=== PATIENT | male | born 1985 | race Caucasian/White ===

== ENCOUNTER 2016-08-06 16:38 | Emergency (ER) | payer MEDICAID, OTHER ==
[~2016-08-06 16:38] MED LIST: CELE40TA OR; DEPA250T2 OR; DEPA500T2 OR; EFFE37.527 OR; HYDR50TA8 OR; No Historical Meds; QUET30XR OR; TRAZ150T OR
--- NOTE | 2016-08-06 18:51 | EDDOCDS ---
Physician Documentation [facility] Name: Emil Gardiner Age: 31 yrs Sex: Male : 1985 Arrival Date: 08/06/2016 Time: 16:38 Bed Triage 2 Private MD: NO PRIMARY PHYSICIAN, . Disposition: 08/06/16 18:40 Discharged to Home/Self Care. Impression: Cellulitis of buttock. - Condition is Stable. - Discharge Instructions: Cellulitis. - Prescriptions for Doxycycline Hyclate 100 mg Oral Tablet - take 1 tablet by ORAL route every 12 hours; 20 tablet. - Medication Reconciliation, Local Pharmacy Hours form. - Follow up: [facility]; When: 2 - 3 days; Reason: Recheck today's complaints, Continuance of care. Follow up: Emergency Department; When: 2 - 3 days; Reason: Wound/Symptom Recheck, Recheck today's complaints, Continuance of care. - Problem is new. - Symptoms have improved. - Notes: STOP AZITHROMYCIN, START DOXYCYLINE AND CONTINUE FLAGYL. FOLLOW UP WITH YOUR DOCTOR OR THE GRADUATE MEDICAL PROGRAM IN 2-3 DAYS FOR RECHECK Historical: - Allergies: no known allergies; - Home Meds: 1. azithromycin 250 mg Oral tab 1 tab once daily (Last dose: 08/05/2016) 2. Flagyl 500 mg Oral tab 1 tab every 8 hours (Last dose: 08/06/2016 14:00) - PMHx: none; - PSHx: cleft lip and palate; - Social history: Smoking status: Patient uses tobacco products, current every day smoker. No barriers to communication noted, The patient speaks fluent [place], Speaks appropriately for age. - Family history: Not pertinent. - : The pt / caregiver states he / she is not on anticoagulants. Home medication list is obtained from the patient. - Exposure Risk Screening:: None identified. Vital Signs: 08/06 16:40 BP 142 / 84; Pulse 73; Resp 18 S; Temp 96.8(O); Pulse Ox 99% on R/A; Weight 108.86 kg / gr2 240 lbs (R); Height 6 ft. 3 in. (190.50 cm) (R); Pain 2/10; 18:42 BP 139 / 96; Pulse 68; Resp 18; Temp 98.2(TE); Pulse Ox 97% on R/A; Pain 0/10; mdr 16:40 Body Mass Index 30.00 (108.86 kg, 190.50 cm) gr2 MDM: 18:36 Financial registration complete. ks16 18:37 [facility] Payment Agreement was scanned into [employer] and attached to record. [email or web address] Signatures: Shahnaz Pearce,RN RN dsf Keith Irizarry, RPA-C RPA-Cck7 Sangita Turner, Reg Reg ks16 The chart was reviewed and I authenticate all verbal orders and agree with the evaluation and treatment provided.Attachments: 18:37 [facility] Payment Agreement ks16 MTDD
--- NOTE | 2016-08-06 18:51 | EDDOCDS ---
Nurse's Notes [facility] Name: Emil Gardiner Age: 31 yrs Sex: Male : 1985 Arrival Date: 08/06/2016 Time: 16:38 Bed Triage 2 Private MD: NO PRIMARY PHYSICIAN, . Diagnosis: Cellulitis of buttock Presentation: 08/06 16:43 Presenting complaint: Patient states: boil to left cheek that he noticed 2 days ago. dsf Adult Sepsis Screening: The patient does not have new or worsening altered mentation. Patient's respiratory rate is less than 22. Systolic blood pressure is greater than 100. Patient has a qSOFA score of 0- Negative Sepsis Screen. Suicide/Homicide risk assessment- the patient denies having any suicidal and/or homicidal ideations and does not present with any other emotional, behavioral or mental health complaints. Status: Patient is not a sales and service advisor or dependent. Transition of care: patient was not received from another setting of care. 16:43 Acuity: CHRISTIANO Level 4 dsf 16:43 Method Of Arrival: Walkin/Carried/Asstd dsf Triage Assessment: 16:45 General: Appears in no apparent distress, Behavior is appropriate for age, cooperative. dsf Pain: Denies pain. HIV screening NA for this visit Offered previously. Derm: Reports bump to left butt cheek. Historical: - Allergies: no known allergies; - Home Meds: 1. azithromycin 250 mg Oral tab 1 tab once daily (Last dose: 08/05/2016) 2. Flagyl 500 mg Oral tab 1 tab every 8 hours (Last dose: 08/06/2016 14:00) - PMHx: none; - PSHx: cleft lip and palate; - Social history: Smoking status: Patient uses tobacco products, current every day smoker. No barriers to communication noted, The patient speaks fluent Indonesian, Speaks appropriately for age. - Family history: Not pertinent. - : The pt / caregiver states he / she is not on anticoagulants. Home medication list is obtained from the patient. - Exposure Risk Screening:: None identified. Screenin:46 Screening information is obtained from the patient. Fall risk: No risks identified. dsf Assistance ADL's: requires no assistance with activities of daily living. Abuse/DV Screen: The patient / caregiver reports he/she is: not in a situation that causes fear, pain or injury. Nutritional screening: No deficits noted. Advance Directives: Currently, there is no health care proxy. home support is adequate. Assessment: 18:46 General: Appears in no apparent distress, Behavior is appropriate for age, cooperative. dsf Neurological: Level of Consciousness is awake, alert. Cardiovascular: No deficits noted. Respiratory: No deficits noted. Derm: Skin is pink, warm & dry. Vital Signs: 16:40 BP 142 / 84; Pulse 73; Resp 18 S; Temp 96.8(O); Pulse Ox 99% on R/A; Weight 108.86 kg gr2 (R); Height 6 ft. 3 in. (190.50 cm) (R); Pain 2/10; 18:42 BP 139 / 96; Pulse 68; Resp 18; Temp 98.2(TE); Pulse Ox 97% on R/A; Pain 0/10; mdr 16:40 Body Mass Index 30.00 (108.86 kg, 190.50 cm) gr2 Vitals: 16:40 Log In Time: August 06, 2016 at 16:40. gr2 ED Course: 16:39 Patient visited by Carol Jose. gr2 16:39 NO PRIMARY PHYSICIAN, . is Private Physician. gr2 16:39 Patient moved to Waiting gr2 16:41 Patient visited by Carol Jose. gr2 16:41 Patient moved to Pre RCE gr2 16:44 Triage Initiated dsf 18:10 Patient moved to Triage 2 dsf 18:17 [facility] ck7 18:17 Geovani Navarrete MD is Attending Physician. ck7 18:17 Patient visited by Keith Irizarry RPA-C. ck7 18:37 [facility] Payment Agreement was scanned into [employer] and attached to record. ks16 18:39 [facility] is Referral Physician. ck7 18:46 Patient visited by Vitaly Bolden PCA. mdr 18:46 The patient / caregiver is instructed regarding the plan of care and ED course. dsf 18:46 No IV's were initiated during this patient's visit. No procedures done that require dsf assistance. Order Results: There are currently no results for this order. Outcome: 18:40 Discharge ordered by Provider. ck7 18:46 Discharge Assessment: Patient awake, alert and oriented x 3. No cognitive and/or dsf functional deficits noted. Patient verbalized understanding of disposition instructions. patient administered narcotics - no. The following High Risk Discharge criteria are identified: None. Discharged to home ambulatory. Condition: stable. Discharge instructions given to patient, Instructed on discharge instructions, follow up and referral plans. medication usage, Demonstrated understanding of instructions, medications, Pt was receptive of discharge instructions/ teaching. Prescriptions given X 1. No special radiology studies were completed. Property :Personal belongings accompany Pt. 18:50 Patient left the ED. dsf Signatures: Shahnaz Pearce,RN RN dsf Keith Irizarry, RPA-C RPA-Cck7 Carol Jose gr2 Vitaly Bolden, FERNIE CONSTRUCTION TRADES CONTRACTOR mdr Sangita Turner, Reg Reg ks16 MTDD
--- NOTE | 2016-08-08 19:50 | EDDOCDS ---
Physician Documentation [facility] Name: Emil Gardiner Age: 31 yrs Sex: Male : 1985 Arrival Date: 08/06/2016 Time: 16:38 Bed Triage 2 Private MD: NO PRIMARY PHYSICIAN, . Disposition: 08/06/16 18:40 Discharged to Home/Self Care. Impression: Cellulitis of buttock. - Condition is Stable. - Discharge Instructions: Cellulitis. - Prescriptions for Doxycycline Hyclate 100 mg Oral Tablet - take 1 tablet by ORAL route every 12 hours; 20 tablet. - Medication Reconciliation, Local Pharmacy Hours form. - Follow up: [facility]; When: 2 - 3 days; Reason: Recheck today's complaints, Continuance of care. Follow up: Emergency Department; When: 2 - 3 days; Reason: Wound/Symptom Recheck, Recheck today's complaints, Continuance of care. - Problem is new. - Symptoms have improved. - Notes: STOP AZITHROMYCIN, START DOXYCYLINE AND CONTINUE FLAGYL. FOLLOW UP WITH YOUR DOCTOR OR THE GRADUATE MEDICAL PROGRAM IN 2-3 DAYS FOR RECHECK Historical: - Allergies: no known allergies; - Home Meds: 1. azithromycin 250 mg Oral tab 1 tab once daily (Last dose: 08/05/2016) 2. Flagyl 500 mg Oral tab 1 tab every 8 hours (Last dose: 08/06/2016 14:00) - PMHx: none; - PSHx: cleft lip and palate; - Social history: Smoking status: Patient uses tobacco products, current every day smoker. No barriers to communication noted, The patient speaks fluent [place] Citizen, Speaks appropriately for age. - Family history: Not pertinent. - : The pt / caregiver states he / she is not on anticoagulants. Home medication list is obtained from the patient. - Exposure Risk Screening:: None identified. Vital Signs: 08/06 16:40 BP 142 / 84; Pulse 73; Resp 18 S; Temp 96.8(O); Pulse Ox 99% on R/A; Weight 108.86 kg / gr2 240 lbs (R); Height 6 ft. 3 in. (190.50 cm) (R); Pain 2/10; 18:42 BP 139 / 96; Pulse 68; Resp 18; Temp 98.2(TE); Pulse Ox 97% on R/A; Pain 0/10; mdr 16:40 Body Mass Index 30.00 (108.86 kg, 190.50 cm) gr2 MDM: 18:36 Financial registration complete. ri 18:37 [facility] Payment Agreement was scanned into [employer] and attached to record. 08/07 12:03 T-Sheet-- Draft Copy was scanned into [employer] and attached to record. gb Signatures: Suly Ramírez, Reg Reg gb Shahnaz Pearce RN RN dsf Keith Irizarry, RPA-C RPA-Cck7 Sangita Turner, Reg Reg ks16 The chart was reviewed and I authenticate all verbal orders and agree with the evaluation and treatment provided.Attachments: 08/06 18:37 [facility] Payment Agreement 08/07 12:03 T-Sheet-- Draft Copy gb Chart Complete MTDD
--- NOTE | 2016-08-08 19:50 | EDDOCDS ---
Nurse's Notes [facility] Name: Emil Gardiner Age: 31 yrs Sex: Male : 1985 Arrival Date: 08/06/2016 Time: 16:38 Bed Triage 2 Private MD: NO PRIMARY PHYSICIAN, . Diagnosis: Cellulitis of buttock Presentation: 08/06 16:43 Presenting complaint: Patient states: boil to left cheek that he noticed 2 days ago. dsf Adult Sepsis Screening: The patient does not have new or worsening altered mentation. Patient's respiratory rate is less than 22. Systolic blood pressure is greater than 100. Patient has a qSOFA score of 0- Negative Sepsis Screen. Suicide/Homicide risk assessment- the patient denies having any suicidal and/or homicidal ideations and does not present with any other emotional, behavioral or mental health complaints. Status: Patient is not a fuel injection servicer or dependent. Transition of care: patient was not received from another setting of care. 16:43 Acuity: CHRISTIANO Level 4 dsf 16:43 Method Of Arrival: Walkin/Carried/Asstd dsf Triage Assessment: 16:45 General: Appears in no apparent distress, Behavior is appropriate for age, cooperative. dsf Pain: Denies pain. HIV screening NA for this visit Offered previously. Derm: Reports bump to left butt cheek. Historical: - Allergies: no known allergies; - Home Meds: 1. azithromycin 250 mg Oral tab 1 tab once daily (Last dose: 08/05/2016) 2. Flagyl 500 mg Oral tab 1 tab every 8 hours (Last dose: 08/06/2016 14:00) - PMHx: none; - PSHx: cleft lip and palate; - Social history: Smoking status: Patient uses tobacco products, current every day smoker. No barriers to communication noted, The patient speaks fluent [place], Speaks appropriately for age. - Family history: Not pertinent. - : The pt / caregiver states he / she is not on anticoagulants. Home medication list is obtained from the patient. - Exposure Risk Screening:: None identified. Screenin:46 Screening information is obtained from the patient. Fall risk: No risks identified. dsf Assistance ADL's: requires no assistance with activities of daily living. Abuse/DV Screen: The patient / caregiver reports he/she is: not in a situation that causes fear, pain or injury. Nutritional screening: No deficits noted. Advance Directives: Currently, there is no health care proxy. home support is adequate. Assessment: 18:46 General: Appears in no apparent distress, Behavior is appropriate for age, cooperative. dsf Neurological: Level of Consciousness is awake, alert. Cardiovascular: No deficits noted. Respiratory: No deficits noted. Derm: Skin is pink, warm & dry. Vital Signs: 16:40 BP 142 / 84; Pulse 73; Resp 18 S; Temp 96.8(O); Pulse Ox 99% on R/A; Weight 108.86 kg gr2 (R); Height 6 ft. 3 in. (190.50 cm) (R); Pain 2/10; 18:42 BP 139 / 96; Pulse 68; Resp 18; Temp 98.2(TE); Pulse Ox 97% on R/A; Pain 0/10; mdr 16:40 Body Mass Index 30.00 (108.86 kg, 190.50 cm) gr2 Vitals: 16:40 Log In Time: August 06, 2016 at 16:40. gr2 ED Course: 16:39 Patient visited by Carol Jose. gr2 16:39 NO PRIMARY PHYSICIAN, . is Private Physician. gr2 16:39 Patient moved to Waiting gr2 16:41 Patient visited by Carol Jose. gr2 16:41 Patient moved to Pre RCE gr2 16:44 Triage Initiated dsf 18:10 Patient moved to Triage 2 dsf 18:17 Keith Iriz[facility]C [facility] ck7 18:17 Geovani Navarrete MD is Attending Physician. ck7 18:17 Patient visited by Keith Irizarry RPA-C. ck7 18:37 [facility] Payment Agreement was scanned into [employer] and attached to record. ks16 18:39 [facility] is Referral Physician. ck7 18:46 Patient visited by Vitaly Boldne PCA. mdr 18:46 The patient / caregiver is instructed regarding the plan of care and ED course. dsf 18:46 No IV's were initiated during this patient's visit. No procedures done that require dsf assistance. 08/07 12:03 T-Sheet-- Draft Copy was scanned into [employer] and attached to record. gb Order Results: There are currently no results for this order. Outcome: 08/06 18:40 Discharge ordered by Provider. ck7 18:46 Discharge Assessment: Patient awake, alert and oriented x 3. No cognitive and/or dsf functional deficits noted. Patient verbalized understanding of disposition instructions. patient administered narcotics - no. The following High Risk Discharge criteria are identified: None. Discharged to home ambulatory. Condition: stable. Discharge instructions given to patient, Instructed on discharge instructions, follow up and referral plans. medication usage, Demonstrated understanding of instructions, medications, Pt was receptive of discharge instructions/ teaching. Prescriptions given X 1. No special radiology studies were completed. Property :Personal belongings accompany Pt. 18:50 Patient left the ED. dsf Signatures: Suly Ramírez, Reg Reg gb Shahnaz Pearce,RN RN dsf Keith Irizarry, RPA-C RPA-Cck7 Carol Jose gr2 Vitaly Bolden, SPORTS BOOKMAKER SPORTS BOOKMAKER mdr Sangita Turner, Reg Reg ks16 Chart Complete MTDD
--- NOTE | 2016-08-08 19:50 | EDDOCDS ---
Physician Documentation [facility] Name: Emil Gardiner Age: 31 yrs Sex: Male : 1985 Arrival Date: 08/06/2016 Time: 16:38 Bed Triage 2 Private MD: NO PRIMARY PHYSICIAN, . Disposition: 08/06/16 18:40 Discharged to Home/Self Care. Impression: Cellulitis of buttock. - Condition is Stable. - Discharge Instructions: Cellulitis. - Prescriptions for Doxycycline Hyclate 100 mg Oral Tablet - take 1 tablet by ORAL route every 12 hours; 20 tablet. - Medication Reconciliation, Local Pharmacy Hours form. - Follow up: [facility]; When: 2 - 3 days; Reason: Recheck today's complaints, Continuance of care. Follow up: Emergency Department; When: 2 - 3 days; Reason: Wound/Symptom Recheck, Recheck today's complaints, Continuance of care. - Problem is new. - Symptoms have improved. - Notes: STOP AZITHROMYCIN, START DOXYCYLINE AND CONTINUE FLAGYL. FOLLOW UP WITH YOUR DOCTOR OR THE GRADUATE MEDICAL PROGRAM IN 2-3 DAYS FOR RECHECK Historical: - Allergies: no known allergies; - Home Meds: 1. azithromycin 250 mg Oral tab 1 tab once daily (Last dose: 08/05/2016) 2. Flagyl 500 mg Oral tab 1 tab every 8 hours (Last dose: 08/06/2016 14:00) - PMHx: none; - PSHx: cleft lip and palate; - Social history: Smoking status: Patient uses tobacco products, current every day smoker. No barriers to communication noted, The patient speaks fluent Algerian, Speaks appropriately for age. - Family history: Not pertinent. - : The pt / caregiver states he / she is not on anticoagulants. Home medication list is obtained from the patient. - Exposure Risk Screening:: None identified. Vital Signs: 08/06 16:40 BP 142 / 84; Pulse 73; Resp 18 S; Temp 96.8(O); Pulse Ox 99% on R/A; Weight 108.86 kg / gr2 240 lbs (R); Height 6 ft. 3 in. (190.50 cm) (R); Pain 2/10; 18:42 BP 139 / 96; Pulse 68; Resp 18; Temp 98.2(TE); Pulse Ox 97% on R/A; Pain 0/10; mdr 16:40 Body Mass Index 30.00 (108.86 kg, 190.50 cm) gr2 MDM: 18:36 Financial registration complete. ca 18:37 [facility] Payment Agreement was scanned into [employer] and attached to record. 08/07 12:03 T-Sheet-- Draft Copy was scanned into [employer] and attached to record. gb Signatures: Suly Ramírez, Reg Reg gb Shahnaz Pearce RN RN dsf Keith Irizarry, RPA-C RPA-Cck7 Sangita Turner, Reg Reg ks16 The chart was reviewed and I authenticate all verbal orders and agree with the evaluation and treatment provided.Attachments: 08/06 18:37 [facility] Payment Agreement 08/07 12:03 T-Sheet-- Draft Copy gb Chart Complete MTDD
== END 2016-08-06 18:50 | disposition home or self-care (01) ==
LOC: M ED 16:38
DX: L03.317 Cellulitis of buttock (principal); F17.210 Nicotine dependence, cigarettes, uncomplicated

== ENCOUNTER → 2016-08-20 | Outpatient (REF) | payer OTHER ==
[2016-08-20 11:45] LABS: BASO # 0.1 K/mm3 (0.0-0.2); EOS # 0.2 K/mm3 (0.0-0.50); EOS % 3.3 % (0.0-3.0); LARGE UNSTAINED CELL # 0.1 K/mm3 (0.0-0.4); LARGE UNSTAINED CELL % 1.6 % (0.0-4.0); LYMPH # 2.4 K/mm3 (1.5-4.5); LYMPH % 30.7 % (24.0-44.0); MEAN CORPUSCULAR HEMOGLOBIN 28.3 pg (27.0-33.0); MONO # 0.5 K/mm3 (0.0-0.8); NEUTROPHILS # 4.3 K/mm3 (1.8-7.7); NEUTROPHILS % 57.3 % (36.0-66.0); PLATELET COUNT, AUTOMATED 254 k/mm3 (150-450); RED CELL DISTRIBUTION WIDTH 12.6 % (11.5-14.5); WHITE BLOOD COUNT 7.5 K/mm3 (4.0-10.0)
[2016-08-20 12:21] LABS: ALBUMIN 3.9 GM/DL (3.2-5.2); ALBUMIN/GLOBULIN RATIO 1.34 (1.00-1.93); ALKALINE PHOSPHATASE 89 U/L (45-117); ALT/SGPT 63 U/L (12-78); ANION GAP 7 MEQ/L (8-16); AST/SGOT 23 U/L (15-37); BILIRUBIN,TOTAL 0.5 MG/DL (0.2-1.0); BLOOD UREA NITROGEN 13 MG/DL (7-18); CALCIUM LEVEL 8.9 MG/DL (8.5-10.1); CARBON DIOXIDE LEVEL 29 MEQ/L (21-32); CHLORIDE LEVEL 104 MEQ/L (98-107); CHOLESTEROL LEVEL 183 MG/DL (<200); GLOMERULAR FILTRATION RATE > 60.0 (>60); GLUCOSE, FASTING 90 MG/DL (70-105); POTASSIUM SERUM 4.1 MEQ/L (3.5-5.1); SODIUM LEVEL 140 MEQ/L (136-145); TOTAL PROTEIN 6.8 GM/DL (6.4-8.2); TRIGLYCERIDES LEVEL 172 MG/DL (<150)
== END ==
LOC: M SFHCPLAZ 09:47
PROVIDERS: ATTEND Physician Assistant
DX: R51 Headache (principal); Z13.0 Encounter for screening for diseases of the blood and blood-forming organs and certain disorders involving the immune mechanism; Z13.220 Encounter for screening for lipoid disorders

== ENCOUNTER → 2016-09-07 | Outpatient (REF) | payer OTHER | LOC: M LAB REF 14:45 | PROVIDERS: ATTEND Physician Assistant | DX: J11.00 Influenza due to unidentified influenza virus with unspecified type of pneumonia (principal) ==

== ENCOUNTER → 2017-01-22 | Outpatient (CLI) | payer OTHER | LOC: M SMT 08:27 | PROVIDERS: ATTEND Nurse Practitioner Women's Health | DX: R68.82 Decreased libido (principal) ==

== ENCOUNTER 2017-11-11 17:28 | Emergency (ER) | payer SELFPAY, OTHER | END 2017-11-11 19:16 | disposition left against medical advice (07) | LOC: M ED 17:28 | DX: Z53.29 Procedure and treatment not carried out because of patient's decision for other reasons (principal) ==

== ENCOUNTER 2018-11-25 13:18 | Emergency (ER) | payer SELFPAY ==
[~2018-11-25] VITALS: Ht 190.5 cm; Wt 115.3 kg
[~2018-11-25 13:18] MED LIST changes: -QUET30XR OR; +SERO300T20 OR
[2018-11-25] MEDS ORDERED: AMOX500C PO (13:23)
[2018-11-25] MEDS ORDERED: cefTRIAXone SOD 1 GM VIAL (J0696) IM ONE (14:30)
[2018-11-25] MEDS ORDERED: LIDOCAINE 1% SDV 5 ML VIAL DILUENT ONE (14:30)
[2018-11-25] MEDS ORDERED: PENI500T PO (14:56)
[2018-11-25 15:14] VITALS: BP 144/69
== END 2018-11-25 15:15 | disposition home or self-care (01) ==
LOC: M ED 13:18
DX: K04.7 Periapical abscess without sinus (principal); F17.210 Nicotine dependence, cigarettes, uncomplicated
CPT/HCPCS: 64400; 96372; 99283; J0696

== ENCOUNTER 2018-12-20 17:47 | Emergency (ER) | payer SELFPAY ==
[~2018-12-20] VITALS: Ht 190.5 cm; Wt 111.4 kg
[2018-12-20 17:47] VITALS: BP 135/89
[~2018-12-20 17:47] MED LIST changes: +AMOX500C PO; +PENI500T PO
[2018-12-20] MEDS ORDERED: IBUPROFEN 600 MG TAB PO ONE (18:30)
[2018-12-20] MEDS ORDERED: IBUP-1022 PO (18:31)
[2018-12-20] MEDS ORDERED: AUGM875T28 PO (18:31)
== END 2018-12-20 20:51 | disposition home or self-care (01) ==
LOC: M ED 17:47
DX: K02.9 Dental caries, unspecified (principal); K04.7 Periapical abscess without sinus; F17.210 Nicotine dependence, cigarettes, uncomplicated

== ENCOUNTER 2018-12-22 02:34 | Emergency (ER) | payer SELFPAY ==
[~2018-12-22] VITALS: Ht 190.5 cm; Wt 113.6 kg
[2018-12-22 02:34] VITALS: BP 142/95
[~2018-12-22 02:34] MED LIST changes: +AUGM875T28 PO; +IBUP-1022 PO
[2018-12-22] MEDS ORDERED: KETOROLAC 60 MG/2 ML VIAL (J1885) IM ONE (03:45)
== END 2018-12-22 03:52 | disposition home or self-care (01) ==
LOC: M ED 02:34
DX: K04.7 Periapical abscess without sinus (principal); F17.210 Nicotine dependence, cigarettes, uncomplicated
CPT/HCPCS: 96372; 99283; J1885

== ENCOUNTER 2018-12-22 21:57 | Emergency (ER) | payer SELFPAY ==
[~2018-12-22] VITALS: Ht 190.5 cm; Wt 113.6 kg
[2018-12-22] MEDS ORDERED: BENZOCAINE 20% GEL 9GM TUBE (ANBESOL MAX STRENGTH) TOP ONE (22:45)
[2018-12-22] MEDS ORDERED: ACETAMINOPHEN 500 MG TAB PO ONE (22:45)
[2018-12-22 23:53] VITALS: BP 137/88
== END 2018-12-22 23:54 | disposition home or self-care (01) ==
LOC: M ED 21:57
DX: K04.7 Periapical abscess without sinus (principal); F33.9 Major depressive disorder, recurrent, unspecified; K21.9 Gastro-esophageal reflux disease without esophagitis; F17.210 Nicotine dependence, cigarettes, uncomplicated

== ENCOUNTER → 2019-03-24 | Outpatient (CLI) | payer OTHER, SELFPAY ==
[2019-03-24 10:12] LABS: BASO # 0.1 10^3/uL (0.0-0.2); BASO % 0.9 % (0.0-1.0); EOS # 0.3 10^3/uL (0.0-0.5); EOS % 3.2 % (0.0-3.0); HEMATOCRIT 46.6 % (42.0-52.0); HEMOGLOBIN 16.5 g/dl (13.5-17.5); LYMPH # 2.3 10^3/uL (1.5-5.0); LYMPH % 28.9 % (24.0-44.0); MEAN CORPUSCULAR HEMOGLOBIN 28.4 pg (27.0-33.0); MEAN CORPUSCULAR HGB CONC 35.4 g/dl (32.0-36.5); MEAN CORPUSCULAR VOLUME 80.3 fl (80.0-96.0); MONO # 0.6 10^3/uL (0.0-0.8); MONO % 7.9 % (0.0-5.0); NEUTROPHILS # 4.8 10^3/uL (1.5-8.5); NEUTROPHILS % 58.6 % (36.0-66.0); PLATELET COUNT, AUTOMATED 255 10^3/uL (150-450); WHITE BLOOD COUNT 8.1 10^3/uL (4.0-10.0)
[2019-03-24 11:00] LABS: ALBUMIN 3.8 GM/DL (3.2-5.2); ALT/SGPT 26 U/L (12-78); BILIRUBIN,TOTAL 0.5 MG/DL (0.2-1.0); BLOOD UREA NITROGEN 14 MG/DL (7-18); CALCIUM LEVEL 8.8 MG/DL (8.5-10.1); CARBON DIOXIDE LEVEL 27 MEQ/L (21-32); CHLORIDE LEVEL 105 MEQ/L (98-107); CHOLESTEROL LEVEL 173 MG/DL (<200); CHOLESTEROL RISK RATIO 4.675 (<5); CREATININE FOR GFR 0.89 MG/DL (0.70-1.30); FREE T4 0.92 NG/DL (0.76-1.46); GLOMERULAR FILTRATION RATE > 60.0 (>60); GLUCOSE, FASTING 83 MG/DL (70-100); HDL CHOLESTEROL 37 MG/DL (>40); LDL CHOLESTEROL 101 MG/DL (<100); NON-HDL-C 136 MG/DL; POTASSIUM SERUM 4.1 MEQ/L (3.5-5.1); SODIUM LEVEL 139 MEQ/L (136-145); THYROID STIMULATING HORMONE 0.877 uIU/ML (0.358-3.740); TOTAL PROTEIN 7.2 GM/DL (6.4-8.2); TRIGLYCERIDES LEVEL 177 MG/DL (<150)
[2019-03-24 11:49] LABS: TOTAL 25(OH) VITAMIN D 27.4 NG/ML (30.0-100.0)
[2019-03-24 11:50] LABS: TESTOSTERONE 270 NG/DL (241-827)
[2019-03-24 12:12] LABS: HEMOGLOBIN A1c 5.5 %
== END ==
LOC: M LAB 08:37
PROVIDERS: ATTEND Nurse Practitioner Family
DX: Z00.01 Encounter for general adult medical examination with abnormal findings (principal); N52.9 Male erectile dysfunction, unspecified

== ENCOUNTER → 2019-10-19 | Outpatient (CLI) | payer OTHER ==
[2019-10-19 13:31] LABS: BASO # 0.1 10^3/uL (0.0-0.2); EOS # 0.2 10^3/uL (0.0-0.5); EOS % 2.6 % (0.0-3.0); HEMATOCRIT 49.4 % (42.0-52.0); HEMOGLOBIN 16.8 g/dl (13.5-17.5); LYMPH # 2.8 10^3/uL (1.5-5.0); LYMPH % 30.4 % (24.0-44.0); MEAN CORPUSCULAR VOLUME 82.3 fl (80.0-96.0); MONO # 0.7 10^3/uL (0.0-0.8); MONO % 7.8 % (0.0-5.0); NEUTROPHILS # 5.4 10^3/uL (1.5-8.5); NEUTROPHILS % 57.7 % (36.0-66.0); PLATELET COUNT, AUTOMATED 271 10^3/uL (150-450); WHITE BLOOD COUNT 9.3 10^3/uL (4.0-10.0)
[2019-10-19 14:14] LABS: ALT/SGPT 27 U/L (12-78); BILIRUBIN,TOTAL 0.3 MG/DL (0.2-1.0); BLOOD UREA NITROGEN 17 MG/DL (7-18); CALCIUM LEVEL 9.5 MG/DL (8.5-10.1); CARBON DIOXIDE LEVEL 30 MEQ/L (21-32); CHLORIDE LEVEL 103 MEQ/L (98-107); CREATININE FOR GFR 0.86 MG/DL (0.70-1.30); FREE T4 0.98 NG/DL (0.76-1.46); GLOMERULAR FILTRATION RATE > 60.0 (>60); GLUCOSE, FASTING 87 MG/DL (70-100); POTASSIUM SERUM 5.1 MEQ/L (3.5-5.1); SODIUM LEVEL 137 MEQ/L (136-145); TOTAL 25(OH) VITAMIN D 21.8 NG/ML (30.0-100.0); TOTAL PROTEIN 7.4 GM/DL (6.4-8.2)
--- NOTE | 2019-10-19 17:49 | REP ---
Clinical: Chronic cough . Comparison: 04/21/2010 . Technique: PA and lateral. Findings: The mediastinum and cardiac silhouette are normal. The lung malik are clear and without acute consolidation, effusion, or pneumothorax. The skeletal structures are intact and normal. Impression: 1. No acute cardiopulmonary process. Electronically Signed by Romeo Hinojosa MD 10/19/2019 05:41 P
== END ==
LOC: M WUC 10:56
PROVIDERS: ATTEND Physician Assistant
DX: R05 Cough (principal); R53.83 Other fatigue; Z72.0 Tobacco use

== ENCOUNTER 2020-02-18 17:29 | Emergency (ER) | payer OTHER ==
[~2020-02-18] VITALS: Ht 190.5 cm; Wt 122.3 kg
[2020-02-18] MEDS ORDERED: MECL1TAB31 PO (17:34)
[2020-02-18 19:11] VITALS: BP 139/85
== END 2020-02-18 19:22 | disposition left against medical advice (07) ==
LOC: M ED 17:29
DX: Z53.21 Procedure and treatment not carried out due to patient leaving prior to being seen by health care provider (principal)

== ENCOUNTER → 2020-03-05 | Outpatient (REF) | payer OTHER, MEDICAID ==
[~2020-03-05] MED LIST changes: +MECL1TAB31 PO
[2020-03-05 12:05] LABS: BASO # 0.1 10^3/uL (0.0-0.2); BASO % 0.8 % (0.0-1.0); EOS # 0.2 10^3/uL (0.0-0.5); EOS % 2.7 % (0.0-3.0); HEMATOCRIT 48.2 % (42.0-52.0); HEMOGLOBIN 16.4 g/dl (13.5-17.5); LYMPH # 2.5 10^3/uL (1.5-5.0); LYMPH % 32.1 % (24.0-44.0); MEAN CORPUSCULAR HEMOGLOBIN 28.2 pg (27.0-33.0); MEAN CORPUSCULAR VOLUME 82.8 fl (80.0-96.0); MONO # 0.5 10^3/uL (0.0-0.8); MONO % 6.7 % (0.0-5.0); NEUTROPHILS # 4.5 10^3/uL (1.5-8.5); NEUTROPHILS % 57.2 % (36.0-66.0); PLATELET COUNT, AUTOMATED 263 10^3/uL (150-450); RED BLOOD COUNT 5.82 10^6/uL (4.30-6.10); WHITE BLOOD COUNT 7.8 10^3/uL (4.0-10.0)
[2020-03-05 12:41] LABS: BLOOD UREA NITROGEN 12 MG/DL (7-18); GLUCOSE, FASTING 110 MG/DL (70-100)
[2020-03-05 12:42] LABS: ALBUMIN 3.7 GM/DL (3.2-5.2); ALT/SGPT 26 U/L (12-78); BILIRUBIN,TOTAL 0.3 MG/DL (0.2-1.0); CARBON DIOXIDE LEVEL 30 MEQ/L (21-32); CHLORIDE LEVEL 106 MEQ/L (98-107); CHOLESTEROL LEVEL 169 MG/DL (<200); GLOMERULAR FILTRATION RATE > 60.0 (>60); HDL CHOLESTEROL 34 MG/DL (>40); LDL CHOLESTEROL 76 MG/DL (<100); NON-HDL-C 135 MG/DL; POTASSIUM SERUM 4.2 MEQ/L (3.5-5.1); SODIUM LEVEL 138 MEQ/L (136-145); TOTAL PROTEIN 7.2 GM/DL (6.4-8.2); TRIGLYCERIDES LEVEL 296 MG/DL (<150)
[2020-03-05 13:15] LABS: TOTAL 25(OH) VITAMIN D 40.1 NG/ML (30.0-100.0)
== END ==
LOC: M LAB REF 10:54
PROVIDERS: ATTEND Physician Assistant
DX: E55.9 Vitamin D deficiency, unspecified (principal); E78.2 Mixed hyperlipidemia; F41.9 Anxiety disorder, unspecified; Z72.0 Tobacco use

== ENCOUNTER 2020-06-01 17:53 | Day surgery (SDC) | payer OTHER ==
[~2020-06-01] VITALS: Ht 190.5 cm; Wt 121.4 kg
[2020-06-01] MEDS ORDERED: BUPIVACAINE HCL 0.25% 10ML VIAL As Ordered ONE (18:16)
[2020-06-01] MEDS ORDERED: LIDOCAINE 1% MDV 20ML VIAL As Ordered ONE (18:16)
[2020-06-01 18:29] VITALS: BP 133/90
[2020-06-01] MEDS: PIPERACILLIN/TAZOBACTAM SOD 3.375 GM in D5W MINI-BAG PLUS 50 ML IV SCH (19:03)
[2020-06-01] MEDS ORDERED: ONDANSETRON 4MG/2ML VIAL As Ordered ONE (19:08)
[2020-06-01] MEDS ORDERED: dexameTHASONE 4 MG/ML 1ML VIAL (J1100 PER 1MG) As Ordered ONE (19:08)
[2020-06-01] MEDS ORDERED: MIDAZOLAM INJ 2MG/2ML VIAL (J2250 PER 1MG) As Ordered ONE (19:09)
[2020-06-01] MEDS ORDERED: LIDOCAINE 2% 100MG/5ML SDV (FOR ANES.) As Ordered ONE (19:09)
[2020-06-01] MEDS ORDERED: fentaNYL 250 MCG/5 ML INJECTION (J3010) As Ordered ONE (19:09)
[2020-06-01] MEDS ORDERED: propofoL 200 MG/20 ML VIAL As Ordered ONE (19:09)
[2020-06-01] MEDS ORDERED: ROCURONIUM BROMIDE 50 MG/5 ML VIAL As Ordered ONE (19:15)
[2020-06-01] MEDS ORDERED: ACETAMINOPHEN 1000MG 100ML IV BTL (OFIRMEV) (J0131 PER 10MG) As Ordered ONE (20:32)
[2020-06-01] MEDS ORDERED: SUGAMMADEX SODIUM 500 MG/5 ML VIAL (BRIDION) As Ordered ONE (20:34)
[2020-06-01] MEDS ORDERED: KETOROLAC 60MG 2ML VIAL As Ordered ONE (20:35)
[2020-06-01] MEDS ORDERED: LR 1,000 ML IV SCH ×2 (21:15→21:30)
[2020-06-01] MEDS ORDERED: PERCOCET 5MG/325MG TAB PO PRN (21:15)
[2020-06-01] MEDS ORDERED: MORPHINE 4 MG/ML 1ML VIAL/SYRINGE (J2270) IV PRN (21:15)
[2020-06-01] MEDS ORDERED: KETOROLAC 30 MG/ML 1ML VIAL IV PRN (21:15)
[2020-06-01] MEDS ORDERED: MORPHINE 2 MG/ML 1ML VIAL (J2270) IV PRN (21:30)
[2020-06-01] MEDS ORDERED: METOCLOPRAMIDE INJ 10MG/2ML VIAL (J2765 PER 1) IV PRN (21:30)
[2020-06-01] MEDS ORDERED: fentaNYL 100 MCG/2 ML INJECTION (J3010) IV PRN (21:30)
[2020-06-01] MEDS ORDERED: ONDANSETRON 4MG/2ML VIAL IV PRN (21:30)
[2020-06-01] MEDS ORDERED: oxyCODONE 5MG TAB PO PRN (21:30)
[2020-06-01 21:45] VITALS: BP 136/87
[2020-06-01 22:15] VITALS: BP 137/86
[2020-06-01 22:45] VITALS: BP 133/83
[2020-06-01 23:45] VITALS: BP 132/81
[2020-06-02] MEDS: PIPERACILLIN/TAZOBACTAM SOD 3.375 GM in D5W MINI-BAG PLUS 50 ML IV SCH ×3 (00:02→13:02)
[2020-06-02 00:45] VITALS: BP 130/81
[2020-06-02 01:45] VITALS: BP 128/80
[2020-06-02 02:45] VITALS: BP 126/78
[2020-06-02 06:45] VITALS: BP 122/79
[2020-06-02 07:05] LABS: BASO % 0.2 % (0.0-1.0); EOS % 0.1 % (0.0-3.0); HEMATOCRIT 47.1 % (42.0-52.0); LYMPH # 1.1 10^3/uL (1.5-5.0); LYMPH % 9.4 % (24.0-44.0); MEAN CORPUSCULAR HEMOGLOBIN 27.4 pg (27.0-33.0); MEAN CORPUSCULAR VOLUME 80.8 fl (80.0-96.0); MONO # 0.3 10^3/uL (0.0-0.8); MONO % 2.2 % (0.0-5.0); NEUTROPHILS # 10.1 10^3/uL (1.5-8.5); NEUTROPHILS % 87.5 % (36.0-66.0); PLATELET COUNT, AUTOMATED 272 10^3/uL (150-450); RED BLOOD COUNT 5.83 10^6/uL (4.30-6.10); WHITE BLOOD COUNT 11.5 10^3/uL (4.0-10.0)
[2020-06-02 07:21] LABS: BLOOD UREA NITROGEN 14 MG/DL (7-18); CALCIUM LEVEL 8.5 MG/DL (8.5-10.1); CARBON DIOXIDE LEVEL 26 MEQ/L (21-32); CHLORIDE LEVEL 105 MEQ/L (98-107); CREATININE FOR GFR 0.96 MG/DL (0.70-1.30); GLOMERULAR FILTRATION RATE > 60.0 (>60); GLUCOSE, FASTING 147 MG/DL (70-100); POTASSIUM SERUM 4.1 MEQ/L (3.5-5.1); SODIUM LEVEL 137 MEQ/L (136-145)
[2020-06-02 10:00] VITALS: BP 126/74
== END 2020-06-02 14:29 | disposition home or self-care (01) ==
LOC: M SDC 17:53 → M MSPAV 18:18 → M SDC 06-02 14:29
PROVIDERS: ATTEND Surgery
DX: K35.890 Other acute appendicitis without perforation or gangrene (principal); K21.9 Gastro-esophageal reflux disease without esophagitis; F32.9 Major depressive disorder, single episode, unspecified
CPT/HCPCS: 36415; 44970; 80048; 85025; 88304; 96365; 96366; J0131; J1100; J1885; J2250; J2405; J2543; J3010; U0002

== ENCOUNTER → 2020-07-29 | Outpatient (REF) | payer OTHER ==
[2020-07-29 17:27] LABS: HEMATOCRIT 48.2 % (42.0-52.0); HEMOGLOBIN 16.1 g/dl (13.5-17.5); MEAN CORPUSCULAR HEMOGLOBIN 27.5 pg (27.0-33.0); MEAN CORPUSCULAR HGB CONC 33.4 g/dl (32.0-36.5); MEAN CORPUSCULAR VOLUME 82.3 fl (80.0-96.0); PLATELET COUNT, AUTOMATED 269 10^3/uL (150-450); RED BLOOD COUNT 5.86 10^6/uL (4.30-6.10)
[2020-07-29 17:51] LABS: ALBUMIN 3.9 GM/DL (3.2-5.2); ALT/SGPT 30 U/L (12-78); BILIRUBIN,TOTAL 0.4 MG/DL (0.2-1.0); BLOOD UREA NITROGEN 14 MG/DL (7-18); CALCIUM LEVEL 9.4 MG/DL (8.5-10.1); CARBON DIOXIDE LEVEL 30 MEQ/L (21-32); CHLORIDE LEVEL 104 MEQ/L (98-107); CHOLESTEROL LEVEL 209 MG/DL (<200); CREATININE FOR GFR 0.92 MG/DL (0.70-1.30); FREE T4 0.86 NG/DL (0.76-1.46); GLOMERULAR FILTRATION RATE > 60.0 (>60); GLUCOSE, FASTING 94 MG/DL (70-100); HDL CHOLESTEROL 38 MG/DL (>40); LDL CHOLESTEROL 128 MG/DL (<100); NON-HDL-C 171 MG/DL; POTASSIUM SERUM 4.4 MEQ/L (3.5-5.1); SODIUM LEVEL 139 MEQ/L (136-145); TOTAL 25(OH) VITAMIN D 22.8 NG/ML (30.0-100.0); TOTAL PROTEIN 7.1 GM/DL (6.4-8.2); TRIGLYCERIDES LEVEL 213 MG/DL (<150)
== END ==
LOC: M LAB REF 16:27
PROVIDERS: ATTEND Nurse Practitioner Family
DX: R03.0 Elevated blood-pressure reading, without diagnosis of hypertension (principal)

== ENCOUNTER → 2020-08-09 | Outpatient (CLI) | payer OTHER ==
--- NOTE | 2020-08-09 10:21 | REP ---
INDICATION: OTHER FORMS OF DYSPNEA. COMPARISON: Comparison chest x-ray October 19, 2019. TECHNIQUE: Two views.. FINDINGS: The lungs are well inflated and free of infiltrate. The pleural angles are sharp. The heart size is normal. Pulmonary vasculature is not increased. No significant bony abnormality is seen. There is an old healed right clavicle fracture. IMPRESSION: No active disease.. <Electronically signed by Zhou Noe > 08/09/20 1015
== END ==
LOC: M RAD 09:58
PROVIDERS: ATTEND Nurse Practitioner Family
DX: R06.09 Other forms of dyspnea (principal)

== ENCOUNTER → 2022-08-27 | Outpatient (REF) | payer OTHER ==
[2022-08-27 12:35] LABS: BASO # 0.1 10^3/uL (0.0-0.2); BASO % 0.8 % (0.0-1.0); EOS # 0.2 10^3/uL (0.0-0.5); EOS % 2.3 % (0.0-3.0); HEMATOCRIT 47.4 % (42.0-52.0); HEMOGLOBIN 16.3 g/dl (13.5-17.5); LYMPH # 2.6 10^3/uL (1.5-5.0); LYMPH % 28.6 % (24.0-44.0); MEAN CORPUSCULAR HGB CONC 34.4 g/dl (32.0-36.5); MEAN CORPUSCULAR VOLUME 81.4 fl (80.0-96.0); MONO # 0.7 10^3/uL (0.0-0.8); MONO % 8.1 % (2.0-8.0); NEUTROPHILS # 5.5 10^3/uL (1.5-8.5); NEUTROPHILS % 59.7 % (36.0-66.0); PLATELET COUNT, AUTOMATED 287 10^3/uL (150-450); RED BLOOD COUNT 5.82 10^6/uL (4.30-6.10); WHITE BLOOD COUNT 9.2 10^3/uL (4.0-10.0)
[2022-08-27 12:47] LABS: HEMOGLOBIN A1c 5.6 % (4.0-6.0)
[2022-08-27 13:01] LABS: ALBUMIN 3.8 G/DL (3.2-5.2); ALKALINE PHOSPHATASE 93 U/L (46-116); ALT/SGPT 21 U/L (7.0-40); AST/SGOT 12 U/L (<34); BILIRUBIN,TOTAL 0.7 MG/DL (0.3-1.2); BLOOD UREA NITROGEN 15 MG/DL (9-23); CALCIUM LEVEL 9.1 MG/DL (8.5-10.1); CARBON DIOXIDE LEVEL 29 MMOL/L (20-31); CHLORIDE LEVEL 105 MMOL/L (98-107); CHOLESTEROL LEVEL 149 MG/DL (<200); CHOLESTEROL RISK RATIO 4.22 (<5); CREATININE FOR GFR 0.89 MG/DL (0.70-1.30); GLOMERULAR FILTRATION RATE > 60.0 (>60); GLUCOSE, FASTING 102 MG/DL (60-100); HDL CHOLESTEROL 35.3 MG/DL (>40); LDL CHOLESTEROL 96.3 MG/DL (<100); NON-HDL-C 114 MG/DL; POTASSIUM SERUM 4.4 MMOL/L (3.5-5.1); SODIUM LEVEL 137 MMOL/L (136-145); THYROID STIMULATING HORMONE 1.018 uIU/ML (0.55-4.78); TOTAL PROTEIN 6.8 G/DL (5.7-8.2); TRIGLYCERIDES LEVEL 87 MG/DL (<150)
== END ==
LOC: M LAB REF 11:41
PROVIDERS: ATTEND Nurse Practitioner Family
DX: R03.0 Elevated blood-pressure reading, without diagnosis of hypertension (principal); Z68.34 Body mass index [BMI] 34.0-34.9, adult